=== PATIENT | male | born 1985 | race African-American/Black ===

== ENCOUNTER 2020-08-08 18:38 | Emergency (ER) | payer OTHER ==
[2020-08-08] MEDS ORDERED: Ondansetron ODT 4 MG TAB ONE (19:31)
[2020-08-08] MEDS ORDERED: Ibuprofen 800 MG TAB ONE (19:31)
[2020-08-08] MEDS ORDERED: Azithromycin 250 MG TAB ONE (19:43)
--- NOTE | 2020-08-08 19:49 | RAD ---
PORTABLE CHEST: 08/08/20 PROVIDED CLINICAL HISTORY: Cough. FINDINGS: No comparisons. The cardiac and mediastinal silhouette is within normal limits. There is patchy air s pace disease demonstrated involving lower lung zones bilaterally. There is no pleural fluid or pneumo thorax apparent. IMPRESSION: Patchy bibasilar air space disease, correlate for pneumonia. POS: [facility]
[2020-08-09 16:54] LABS: SARS-CoV-2 PCR by NAA Not Detected (NotDetected)
== END 2020-08-08 19:51 | disposition home or self-care (01) ==
LOC: MADERS 18:38
DX: J18.9 Pneumonia, unspecified organism (principal); Z20.822 Contact with and (suspected) exposure to COVID-19; F17.210 Nicotine dependence, cigarettes, uncomplicated
CPT/HCPCS: 71045; 87635; 87804; 99406; Q0162; U0003; U0005

== ENCOUNTER 2020-08-29 10:41 | Emergency (ER) | payer OTHER ==
--- NOTE | 2020-08-29 11:19 | RAD ---
EXAM: Chest 2 views: HISTORY: Covid exposure with cough COMPARISON: 08/08/2020 FINDINGS: There is a normal-sized cardiomediastinal silhouette. Subtle scattered multifocal mixed opacities are seen in the lungs. No acute osseous abnormality. IMPRESSION: Possible subtle multifocal infiltrates.
[2020-08-29 22:26] LABS: SARS-CoV-2 PCR by NAA Not Detected (NotDetected)
== END 2020-08-29 12:18 | disposition home or self-care (01) ==
LOC: MADERS 10:41
DX: J18.9 Pneumonia, unspecified organism (principal); Z20.822 Contact with and (suspected) exposure to COVID-19; F17.210 Nicotine dependence, cigarettes, uncomplicated
CPT/HCPCS: 71046; 87635; 87804; U0003; U0005

== ENCOUNTER 2020-11-28 20:03 | Emergency (ER) | payer OTHER ==
[2020-11-28] MEDS ORDERED: Dexamethasone 4 MG TAB ONE (20:58)
[2020-11-28] MEDS ORDERED: Azithromycin 250 MG TAB ONE (20:58)
[2020-11-28] MEDS ORDERED: Benzonatate 100 MG CAP ONE (20:58)
== END 2020-11-28 21:44 | disposition home or self-care (01) ==
LOC: MADERS 20:03
DX: J18.9 Pneumonia, unspecified organism (principal); F17.210 Nicotine dependence, cigarettes, uncomplicated
CPT/HCPCS: 71046; J8540

== ENCOUNTER 2021-01-23 04:45 | Emergency (ER) | payer OTHER | END 2021-01-23 05:22 | disposition home or self-care (01) | LOC: MADERS 04:45 | DX: R11.10 Vomiting, unspecified (principal); F17.210 Nicotine dependence, cigarettes, uncomplicated; R42 Dizziness and giddiness | CPT/HCPCS: 99283 ==

== ENCOUNTER 2021-07-03 18:11 | Emergency (ER) | payer OTHER ==
[2021-07-04 17:58] LABS: SARS-CoV-2 PCR by NAA DETECTED (NotDetected)
== END 2021-07-03 19:28 | disposition home or self-care (01) ==
LOC: MADERS 18:11
DX: U07.1 COVID-19 (principal); F17.210 Nicotine dependence, cigarettes, uncomplicated
CPT/HCPCS: 99283; U0003; U0005

== ENCOUNTER 2023-02-07 22:20 | Emergency (ER) | payer BC, SELFPAY ==
[2023-02-07] MEDS ORDERED: Lactated Ringer's 1,000 ML ONE ×2 (22:44→23:47)
[2023-02-07] MEDS ORDERED: Ketorolac Tromethamine 30 MG/ML VIAL ONE (22:44)
[2023-02-07 23:00] LABS: #Basophils 0.1 thou/uL (0.0-0.2); #Lymphocytes 1.7 thou/uL (1.20-3.40); #Monocytes 0.5 thou/uL (0.11-0.59); #Neutrophils 4.2 thou/uL (1.40-6.50); %Basophils 0.9 % (0.0-1.0); %Eosinophils 0.2 % (0.0-10.0); %Lymphocytes 25.9 % (21.0-51.0); %Monocytes 8.3 % (0.0-10.0); %Neutrophils 64.8 % (42.0-75.0); Hemoglobin 15.9 g/dL (14.0-18.0); Mean Corpuscular HGB CONC 33.2 g/dL (32.0-36.0); Mean Corpuscular Volume 96.5 fl (78.0-98.0); Mean Platelet Volume 8.3 fL (7.4-10.4); Platelet Count 236 10x3/uL (130-400); RBC Distribution Width 12.9 % (11.5-14.5); Red Blood Cell (RBC) Count 4.97 mill/uL (4.70-6.10); White Blood Cell (WBC) Count 6.5 10x3/uL (4.8-10.8)
[2023-02-07 23:20] LABS: ALT (SGPT) 41 U/L (8-55); AST (SGOT) 28 U/L (5-34); Albumin 5.1 g/dL (3.5-5.0); Alkaline Phosphatase 71 U/L (40-110); Anion Gap 20 mmol/L (10-20); BUN (Urea Nitrogen) 15 mg/dL (8.9-20.6); Bilirubin, Total 0.7 mg/dL (0.2-1.2); CK (CPK) 583 U/L (30-200); Calc. Creatinine Clearance 0 mL/min (70-130); Calcium 10.4 mg/dL (7.8-10.44); Carbon Dioxide 20 mmol/L (22-29); Chloride 104 mmol/L (98-107); Estimated GFR 38; Globulin 3.2 g/dL (2.4-3.5); Glucose 104 mg/dL (70-105); Potassium 3.7 mmol/L (3.5-5.1); Protein, Total 8.3 g/dL (6.0-8.3); Sodium 140 mmol/L (136-145)
[2023-02-07] MEDS ORDERED: Potassium Chloride 20 MEQ TAB ONE (23:47)
[2023-02-08] MEDS ORDERED: Acetaminophen 500 MG TAB ONE (01:52)
[2023-02-08] MEDS ORDERED: Cyclobenzaprine 10 MG TAB ONE (01:52)
[2023-02-08 02:10] LABS: Anion Gap 15 mmol/L (10-20); BUN (Urea Nitrogen) 15 mg/dL (8.9-20.6); CK (CPK) 1027 U/L (30-200); Calc. Creatinine Clearance 0 mL/min (70-130); Calcium 9.7 mg/dL (7.8-10.44); Carbon Dioxide 22 mmol/L (22-29); Chloride 106 mmol/L (98-107); Estimated GFR 53; Glucose 103 mg/dL (70-105); Sodium 139 mmol/L (136-145)
[2023-02-08] MEDS ORDERED: Sodium Chloride 0.9% 2,000 ML ONE (02:26)
[2023-02-08 03:42] LABS: Bilirubin Negative (Negative); Blood, Urine Negative (Negative); Clarity Clear (Clear); Glucose, Urine (Dipstick) Negative (Negative); Ketone, Urine Negative (Negative); Leukocyte Negative (Negative); Nitrite Negative (Negative); Protein, Urine (Dipstick) 30 mg/dL (Neg-Trace); Urobilinogen 0.2 mg/dL (Less than 2); pH, Urine 5.5 (5.0-9.0)
[2023-02-08 03:49] LABS: CAUTI Indications for Culture Dysuria,urgency,freq; RBC/HPF None Seen HPF (0-3); Squamous Epithelial 0-3 HPF (0-3); WBC/HPF 0-3 HPF (0-3)
[2023-02-08 03:50] LABS: Urine Culture Reflex No No
[2023-02-08 03:52] LABS: Amphetamine Not Detected (NotDetected); Barbiturates Screen Not Detected (NotDetected); Benzodiazepine Screen Not Detected (NotDetected); Cocaine Metabolite Screen Not Detected (NotDetected); Methadone Not Detected (NotDetected); Methamphetamine Not Detected (NotDetected); Opiate Screen Not Detected (NotDetected); Oxycodone Screen Not Detected (NotDetected); Phencyclidine (PCP) Not Detected (NotDetected); THC/Cannabinoid Screen Not Detected (NotDetected); Tricyclic Screen Not Detected (NotDetected)
[2023-02-08 05:05] LABS: Anion Gap 13 mmol/L (10-20); BUN (Urea Nitrogen) 13 mg/dL (8.9-20.6); CK (CPK) 1458 U/L (30-200); Calc. Creatinine Clearance 0 mL/min (70-130); Calcium 8.8 mg/dL (7.8-10.44); Carbon Dioxide 22 mmol/L (22-29); Chloride 109 mmol/L (98-107); Estimated GFR 65; Glucose 103 mg/dL (70-105); Potassium 3.7 mmol/L (3.5-5.1); Sodium 140 mmol/L (136-145)
== END 2023-02-08 07:28 | disposition left against medical advice (07) ==
LOC: MADERS 22:20
DX: E86.0 Dehydration (principal); N17.9 Acute kidney failure, unspecified; M62.82 Rhabdomyolysis; F17.210 Nicotine dependence, cigarettes, uncomplicated
CPT/HCPCS: 36415; 80048; 80053; 80306; 81001; 82550; 85025; 93005; 96361; 96374; J1885; J7050; J7120